=== PATIENT | female | born 1990 | race Caucasian/White ===

== ENCOUNTER 2018-11-22 03:08 | Outpatient (CLI) | payer OTHER ==
[~2018-11-22] VITALS: Ht 165.1 cm; Wt 69.1 kg
[2018-11-22] MEDS ORDERED: CONCEPT DHA1 CAP (03:34)
[2018-11-22 03:35] VITALS: BP 104/68; PULSE 68; TEMP 97.8
[2018-11-22] MEDS ORDERED: NATURAL IRON65 MG (03:35)
--- NOTE | 2018-11-22 03:50 | NUR ---
Here with spouse due to decreased movement today. Last felt movement 45 min ago but less frequent pt states.EFM on.Movement audible. To right side then left. Variabilty improved.
--- NOTE | 2018-11-22 03:58 | NUR ---
PT AND HUSBANDS SAY THEY HAVE HAD AN "OFF " DAY BECAUSE HAD TO HAVE CAT PUT TO SLEEP. VERY SAD AND TEARY.
== END 2018-11-22 04:05 | disposition home or self-care (01) ==
LOC: LDRO 03:08 → LDR 03:56 → LDRO 04:05 → LDR 11-23 08:38
DX: O36.8130 Decreased fetal movements, third trimester, not applicable or unspecified (principal); Z3A.29 29 weeks gestation of pregnancy
CPT/HCPCS: OP

== ENCOUNTER 2019-02-07 06:21 | Inpatient (IN) | payer OTHER ==
[~2019-02-07] VITALS: Ht 165.1 cm; Wt 72.7 kg
[2019-02-07] VITALS (13 sets, daily range): BP systolic 99–115; BP diastolic 56–73; PULSE 59–94; TEMP 98
[~2019-02-07 06:21] MED LIST: CONCEPT DHA1 CAP; NATURAL IRON65 MG
--- NOTE | 2019-02-07 19:00 | NUR ---
at 40 weeks and 5 days arrives to unit for scheduled induction of labor. Pt oriented to room, call light within reach, bed in low and locked position. Pt changed into clean gown. US and toco explained and applied. Pt reports feeling good movement, denies feeling contractions, denies vaginal bleeding or LOF. Pt reports no changes in vision, RUQ pain, increased swelling, or headaches. Plan of care reviewed with patient and spouse. SVE /-3
--- NOTE | 2019-02-07 19:30 | NUR ---
18G IV started in right wrist after 1 attempt. Admission labs obtained off IV start. Lactated Ringers infusing to gravity. Consents reviewed and signed and patient and spouse. All questions answered.
--- NOTE | 2019-02-07 20:05 | NUR ---
Category 1 FHR tracing. Monitors removed for patient to use restroom before placing cytotec. 2010 - 25 mcg cytotec placed vaginally to posterior fornix of vagina. Pt educated on importance of staying in bed in a wedged position for 2 hours post placement. Call light within reach.
[2019-02-07 20:31] LABS: BASO % 0.3 % (0.0-2.0); EOS # 0.1 (0.0-0.7); EOS % 0.6 % (0-4.0); GRAN # 7.3 (1.4-6.5); GRAN % 71.7 % (42.2-75.2); HEMOGLOBIN 11.8 g/dl (12.5-16.0); LYMPH % 19.7 % (20.0-51.0); MEAN CELL VOLUME 86 fl (80.0-100.0); MEAN CORPUSCULAR HEMOGLOBIN 28 pg (27.0-31.0); MEAN CORPUSCULAR HGB CONC 33 g/dl (33.0-37.0); MEAN PLATELET VOLUME 12.3 fl (7.4-10.4); MONO # 0.7 (0.1-0.6); MONO % 6.9 % (1.7-9.3); PLATELET COUNT 147 K/mm3 (130-400); RED BLOOD COUNT 4.18 M/mm3 (4.10-5.30); REDCELL DISTRIBUTION WIDTH-CV 14.5 % (11.5-14.5)
[2019-02-07 20:34] LABS: HEMATOCRIT 35.8 % (37.0-47.0)
--- NOTE | 2019-02-07 22:05 | NUR ---
Category 1 FHR tracing. Monitors removed, pt up to bathroom to void.
[2019-02-08] VITALS (79 sets, daily range): BP systolic 94–128; BP diastolic 50–76; PULSE 57–141; TEMP 97.9–98.9
--- NOTE | 2019-02-08 00:15 | NUR ---
RN at bedside. [place] showing contractions every 2-3 minutes, pt reports feeling some of them and states they are not painful. Plan of care reviewed, pt agreeable to placing second dose of cytotec. Category 1 FHR tracing obtained. Monitors off, pt up to bathroom to void. 0025 - 25 mcg cytotec placed to posterior fornix of vagina. Pt encouraged to stay in bed in a semi flat position for 2 hours. Call light within reach.
--- NOTE | 2019-02-08 02:25 | NUR ---
RN at bedside discussing plan of care. Pt wishing to have intermittent monitoring while sitting on birthing ball and ambulating around room. Category 1 FHR tracing, monitors removed for intermittent monitoring.
--- NOTE | 2019-02-08 03:40 | NUR ---
0315 Monitors applied for intermittent monitoring. Pt states she barely feels contractions while standing and on birthing ball. 0340 - Category 1 FHR tracing obtained. Pt wishing to be off monitors again to ambulate around in room and sit on birthing ball.
--- NOTE | 2019-02-08 04:30 | NUR ---
RN at bedside. Pt appears to be resting comfortably upon entering room. US and toco applied for monitoring. Pt will continue to try to rest.
--- NOTE | 2019-02-08 05:34 | NUR ---
Category 1 FHR tracing. Monitors removed for patient to freshen up and eat a snack before starting pitocin.
--- NOTE | 2019-02-08 06:30 | NUR ---
Bedside report recieved from Edgar MOSCOSO. Patient resting in bed. SVE-2/60/-3 and pitocin discussed and started per protocol induction. Patient resting and has no needs at this time.
--- NOTE | 2019-02-08 08:42 | NUR ---
Roles at bedside and assessing patient and FHR strip. 0845: SVE-per physician and AROM at this time with meconium fluid noted. Plan of care discussed and questions answered.
--- NOTE | 2019-02-08 09:55 | NUR ---
Patient requesting epidural and Christi DEWEY called and notified. 1015: Patient off montior to void. 1020: Patient sitting on edge of bed and Christi DEWEY at bedside for placement of epidural. Discussed plan of care and risks associated. Patient agrees. Difficulty tracing FHR due to maternal position at this time. 1036: Test dose given and patient tolerates well. 1040: Patient wedged left and safety precautions gone over. Questions answered. 1210: Guidry catheter explained and placed at this time. Patient tolerates well. SVE-5/70/-1. Patient right lateral with left leg stirrup resting in stirrup and patient going to rest. 1300: Patient wedged left with peanut ball in placed.
--- NOTE | 2019-02-08 16:45 | NUR ---
JANET- and Dr. Bailey called and updated. Orders to increase pitocin to 30mU as needed. 1700: Pitocin increased to 22mU/ml/hr 1745: JANET- and updated and no new orders at this time.
[2019-02-09] VITALS (25 sets, daily range): BP systolic 81–112; BP diastolic 46–70; PULSE 71–146; TEMP 97.7–98.1
--- NOTE | 2019-02-09 02:00 | NUR ---
Pt able to lift and hold each leg off of bed for 5 seconds. Pt repositioned to sitting on edge of bed. Epidural catheter removed. Tip smooth, blue, and intact. Pt reports not feeling well, feeling dizzy and her vision becoming blurry. Pt laid back down in bed. Vital signs obtained. 500 mL LR bolus infusing. Fundus remains firm and down 1 from umbilicus with scant bleeding.
--- NOTE | 2019-02-09 02:45 | NUR ---
Pt feeling better and wanting to attempt to go to bathroom, get cleaned up, and go to new room. Pt able to ambulate to bathroom with standby assistance. Pt unable to void at this time. Pt then starts to feel lightheaded and has ringing in ears. Additional staffing called to bathroom. When attempting to pivot to wheelchair patient passes out for approximately 20 seconds, 2 nurses assisted patient to floor. Once patient awake, assisted to wheelchair with 2 person assist. Pt moved back into labor bed. Vital signs obtained. 4th bag of LR infusing. Pt encouraged to rest.
--- NOTE | 2019-02-09 04:00 | NUR ---
Pt just finished . Feeling better, asking about moving to new room. Recommended to patient that she try to rest and sleep for at least an hour before attempting to ambulate again. FOB and to room to rest.
[2019-02-09 08:56] LABS: HEMATOCRIT 26.4 % (37.0-47.0); HEMOGLOBIN 8.9 g/dl (12.5-16.0)
[2019-02-10] VITALS: BP 102/59; PULSE 95; TEMP 98
[2019-02-10 04:00] VITALS: BP 99/60; PULSE 86; TEMP 98.7
[2019-02-10 07:48] VITALS: BP 104/63; PULSE 76; TEMP 97.5
--- NOTE | 2019-02-10 08:40 | NUR ---
Report receieved from off going [facility] taken over by this RN.
[2019-02-10] MEDS ORDERED: IBU600 MG PO (10:35)
--- NOTE | 2019-02-10 12:46 | NUR ---
Discharge instructions adn discharge bag provided. Questions invited and answered. Understanding verbalized.
== END 2019-02-10 13:55 | disposition home or self-care (01) | DRG 768 ==
LOC: LDR 06:21 → OB 18:55 → LDR 02-08 09:06 → OB 02-09 09:32
PROVIDERS: ADMIT Obstetrics & Gynecology
PROC: 10D07Z3 Extraction of Products of Conception, Low Forceps, Via Natural or Artificial Opening (ICD-10-PCS; principal; 2019-02-07)
PROC: 0DQR0ZZ Repair Anal Sphincter, Open Approach (ICD-10-PCS; 2019-02-07)
PROC: 3E0P7VZ Introduction of Hormone into Female Reproductive, Via Natural or Artificial Opening (ICD-10-PCS; 2019-02-07)
PROC: 3E033VJ Introduction of Other Hormone into Peripheral Vein, Percutaneous Approach (ICD-10-PCS; 2019-02-07)
PROC: 10907ZC Drainage of Amniotic Fluid, Therapeutic from Products of Conception, Via Natural or Artificial Opening (ICD-10-PCS; 2019-02-07)
DX: O48.0 Post-term pregnancy (principal); Z37.0 Single live birth; O70.20 Third degree perineal laceration during delivery, unspecified; O77.0 Labor and delivery complicated by meconium in amniotic fluid; Z3A.40 40 weeks gestation of pregnancy; O75.81 Maternal exhaustion complicating labor and delivery; O90.81 Anemia of the puerperium; D64.9 Anemia, unspecified
CPT/HCPCS: J2400; J2590; J7120

== ENCOUNTER → 2019-02-13 | Outpatient (CLI) | payer OTHER ==
[~2019-02-13] MED LIST changes: +IBU600 MG PO
--- NOTE | 2019-02-13 13:42 | NUR ---
Pt, Celine Ingram into clinic with 5 day old "Sruthi" for weight check and breast feeding evaluation. Sruthi was born on [birth year] via forcep assisted vaginal delivery. Sruthi's weight was noted as 8# 13 oz. Celine states that Sruthi is nursing 12 times per day and reports diapers to be WNL with yellow/seedy stools. Today's prefeed weight was noted as 8# 10.2 oz. Sruthi nursed bilaterally with a total gain of 2.35 oz (66 ml). LC noted Sruthi's latch was slightly shallow and offered suggestions to help obtain a wider gape. Celine states that they will often wake Sruthi between 2-3 hours to feed and feels Sruthi does "comfort suck" often. LC discussed that if Sruthi is sleeping and nursing well otherwise they can wait until she wakes herself or go no longer than 4 hours between feeds. POC: Continue to feed ad hermann, at least 8 feeds per day. If Sruthi nurses well, offer pacifier if they feel she needs comfort sucking. Questions invited and answered. Understanding verbalized.
== END ==
LOC: LAC 12:26
DX: Z39.1 Encounter for care and examination of lactating mother (principal); Z71.89 Other specified counseling